=== PATIENT | male | born 1980 | race Caucasian/White ===

== ENCOUNTER 2018-06-26 07:04 | Emergency (ER) | payer BC, SELFPAY ==
[2018-06-26 07:05] VITALS: BP 142/80; PULSE 72; RESP 16; TEMP 36.4; O2SAT 98; BMI 27.8
--- NOTE | 2018-06-26 07:16 | ED.DCSUM_ITS ---
- ER Visit Summary Date of Service: 06/26/18 Chief Complaint: Toe pain History of Present Illness: The patient is a 38 M with right great toe pain. Pain started yesterday evening. The patient fell while going up stairs. Denies any other injuries or complaints. Physical Examination: Tender to palpation near the right great toe MTP joint radiating up into the first metatarsal and down into the proximal phalanx. Overlying skin appears normal. Neurovascularly intact. No deformities. Good range of motion. Test Results: X-rays performed. Emergency Department Course and Treatment: Patient declined pain medicine. X- rays were ordered. X-rays unremarkable. Rest ice, elevate. [id number] remedies for pain. Follow-up with primary care. Treatment Plan: As above Disposition: Discharge Impression: 1. Right great toe pain This note was generated with [employer] dictation software. It may contain incorrect words, spelling, and punctuation that were not noted in review of the chart prior to signing ED Disposition - Plan for ED Patient: Chief Complaint: Lower Extremity Injury Referrals: José Antonio Granda DO [Primary Care Provider] -
--- NOTE | 2018-06-26 07:16 | ED.DEP ---
ED Disposition - Plan for ED Patient: Chief Complaint: Lower Extremity Injury Instructions: ED Sprain Foot Referrals: José Antonio Granda DO [Primary Care Provider] -
--- NOTE | 2018-06-26 07:30 | RAD_ITS ---
HISTORY: TTraumaRAD-EXT/JT PAIN BIGTOE COMPARISON: None FINDINGS: XR right Foot Min 3 Views: At the first MTP, the medial sesamoid is bifid, not unusual. No fracture or acute osseous abnormality. Joint spaces are preserved. Normal bony alignment. Accessory os navicular. No bony erosions. The plantar arch is maintained. No radiopaque foreign body. RAD/Foot min 3 Views IMPRESSION: Negative exam, right foot. No suspicious findings. at 0756 Reported and signed by: Bo Wilkinson MD Electronically Signed: Bo Wilkinson, at 7:55 EST Tel , Service support ,
== END 2018-06-26 08:37 | disposition home or self-care (01) ==
LOC: ED 07:19
PROVIDERS: Emergency Provider Emergency Medicine; Family Provider Pediatrics; PCP Student in an Organized Health Care Education/Training Program
DX: M79.674 Pain in right toe(s) (principal)
CPT/HCPCS: 73630; 99283

== ENCOUNTER 2024-12-07 19:24 | Emergency (ER) | payer BC, SELFPAY ==
[2024-12-07 19:26] VITALS: BP 149/93; PULSE 75; RESP 18; TEMP 37; O2SAT 98; BMI 32.6
--- NOTE | 2024-12-07 20:00 | RAD_ITS ---
PROCEDURE: RIBS UNI MIN 3V W/PA CHEST 12/07/2024 REASON FOR EXAM: FALL, PAIN TECHNIQUE: Frontal and right oblique views of the right ribs. COMPARISON: None RAD/Ribs Uni Min 3V w/PA Chest IMPRESSION: No definite acute displaced right rib fractures although if there is continued concern, consider CT for further evaluation. Bibasilar subsegmental atelectasis. Trace bibasilar pleural effusions. No foca l consolidations. No pneumothorax. Reading Location: [id number]
[2024-12-07] MEDS: Lidocaine 5% Patch 1 PATCH TOPICAL (20:45)
[2024-12-07] MEDS: oxyCODONE 5 MG Tablet PO (20:46)
--- NOTE | 2024-12-07 22:28 | EX.ED.GENINJ ---
HPI History of Present Illness Chief Complaint: Chest Other Informant: patient Narrative Narrative: Patient is a 44-year-old male denies any past medical history presenting with right-sided rib pain. Patient was working on a roof when the ladder fell out from under him but he did catch himself on a roof beam. He felt like he bruised his ribs on the right side. He continued to work however because he needed to get the roof done. He denies any other significant injuries. He states that this was 3 days ago. Today he started to have sharp pains in his right ribs with any arm movements and the pain became particularly severe. Is worse with movement as well as deep breathing. He did take 600 mg of ibuprofen just prior to arrival and notes that this started to improve his pain. He came in for further evaluation and make sure he does not have any severe injury. No other complaints or concerns at this time. Denied his head. Is on any blood thinners. Denies any shortness of breath but it is painful to take a deep breath. PFSH PFS Medical History no medical history Home Medications ?Medication ?Instructions ?Recorded ?Last Taken ?Type ibuprofen 600 mg tablet 600 mg PO Q6H PRN pain #20 tabs 12/07/24 Unknown Rx oxycodone 5 mg tablet 5 mg PO Q8H PRN pain 3 days #10 12/07/24 Unknown Rx tabs Allergy/AdvReac Type Severity Reaction Status Date / Time No Known Allergies Allergy Verified 12/07/24 19:28 Social History Smoking Status: Never smoker ROS ROS ED Constitutional Constitutional ED: Denies chills or fever(s) Cardiovascular Cardiovascular: Reports chest pain and other Details: right chest wall Respiratory/Chest Respiratory/Chest: Denies cough or dyspnea Gastrointestinal Gastrointestinal: Denies abdominal pain, nausea or vomiting Integumentary Denies rash Neurologic Neurologic: Denies headache(s), paresthesias or weakness Hematologic/Lymphatic Hematologic/Lymphatic: Denies easy bleeding or easy bruising EXAM Physical Exam Const Vital Signs: 12/07/24 19:26 12/07/24 19:31 12/07/24 22:42 Temperature 98.6 F 98.2 F Temperature Source Oral Pulse Rate 75 64 Respiratory Rate 18 18 Respiratory Effort Normal Non-Labored Blood Pressure 149/93 H 130/95 H Blood Pressure Mean 111 106 Pulse Ox 98 99 Oxygen Delivery Method Room Air Positive well nourished and well developed General Appearance ED: well developed and NAD HEENT atraumatic Eyes PERRL and EOMs intact bilaterally Neck full ROM General: Negative for tenderness Chest Wall inspection of chest normal Chest Narrative: No chest wall crepitus or ecchymosis appreciated. Tenderness palpation over the right lower ribs and most pronounced at the mid axillary line. This highly reproduces his pain. Resp normal respiratory effort and clear to auscultation bilaterally Cardio regular rhythm and no murmurs Cardio Narrative: 2+ radial pulses present. Rate: regular rate GI normal to inspection, nondistended, normoactive bowel sounds and non-tender GI Narrative: Is mild tenderness when I palpate over the costal margin near his stomach but on just palpation of the stomach itself he is nontender. Small area of ecchymosis noted of the left lower quadrant. Patient states is from another injury. No associated hematoma. No surrounding tenderness Back/Spine normal to inspection and no thoracic nor lumbar tenderness Extremity normal to inspection and full ROM Neuro oriented x3 [place] Coma Scale: document GCS findings Spontaneous Obeys Commands Oriented 15 Psych mental status grossly normal and thought process normal Skin no rashes or lesions noted MDM MDM MDM Narrative Medical decision making narrative: Patient evaluated for worsening right sided chest wall/rib pain. He had an injury 3 days ago but became became much worse today. Patient states he was straining of a bowel movement when the pain became worse. Differential includes rib fracture, pneumothorax, hemothorax and rib contusion. His abdomen is soft as long as you do not touch his ribs or costal margins he is not any abdominal tenderness have a lower suspicion for intra-abdominal pathology such as liver laceration. He is well-appearing with normal vital signs. He is not tachycardic. He has good color. Rib x-ray reviewed by myself as well as radiology does not show any rib fractures or pneumothorax however there are slight bibasilar pleural effusions as well as bibasilar subsegmental atelectasis. He is afebrile low suspicion for secondary pneumonia. Patient given oxycodone Lidoderm patch in the ER with improvement of symptoms. Will treat this as a rib contusion counseled he could have a smaller rib fracture that she is not showing up on imaging today. Discussed use incentive spirometer, pain control with ibuprofen and then is given a prescription for oxycodone for breakthrough pain. Patient is agreeable with this plan of care. Patient given return precautions. Patient is discharged home in stable condition. Radiography Diagnostic Testing: Clinical Impression(s) from Imaging Studies Ribs w/Chest X-Ray 12/07/24 20:00 IMPRESSION: No definite acute displaced right rib fractures although if there is continued concern, consider CT for further evaluation. Bibasilar subsegmental atelectasis. Trace bibasilar pleural effusions. No focal consolidations. No pneumothorax. Reading Location: [facility] Discharge Plan Triage Chief Complaint: Chest Other ED Provider: Trixie Jason Dx/Rx/DC Orders Clinical Impression: Contusion of rib on right side Instructions: ED Bruise, Rib Prescriptions: New oxycodone 5 mg tablet 5 mg PO Q8H PRN (Reason: pain) 3 Days Qty: 10 0RF ibuprofen 600 mg tablet 600 mg PO Q6H PRN (Reason: pain) Qty: 20 0RF Primary Care Provider: José Antonio Granda Referrals: José Antonio Granda DO [Primary Care Provider] - Activity Restrictions/Additional Instructions: As we discussed please regularly take ibuprofen 600 mg to help with pain and inflammation. I recommend using [id number] 4% Lidoderm patches for the pain. Take the oxycodone as needed for breakthrough pain. Pain medication can cause constipation so I do recommend taking a stool softener or MiraLAX while taking the oxycodone. Use incentive spirometer. If you develop fever or difficulty breathing or worsening symptoms please return to the emergency room. Print Language: Bol[place]ian Disposition Disposition: Home, Self Care Discharge Date/Time: 12/07/24 22:45
[2024-12-07 22:42] VITALS: BP 130/95; PULSE 64; RESP 18; TEMP 36.8; O2SAT 99
== END 2024-12-07 22:45 | disposition home or self-care (01) ==
PROVIDERS: Emergency Provider Emergency Medicine; PCP Student in an Organized Health Care Education/Training Program; Visit Provider Emergency Medicine
DX: S20.211A Contusion of right front wall of thorax, initial encounter (principal); J98.11 Atelectasis; W11.XXXA Fall on and from ladder, initial encounter; Y93.H9 Activity, other involving exterior property and land maintenance, building and construction
CPT/HCPCS: 71101; 99282